=== PATIENT | male | born 1975 | race Caucasian/White ===

== ENCOUNTER 2019-08-14 14:34 | Outpatient (CLI) | payer OTHER ==
--- NOTE | 2019-08-14 15:43 | RAD ---
LUMBAR SPINE SERIES 4 VIEWS INCLUDING FLEXION AND EXTENSION: HISTORY: Back pain and left-sided sciatica. FINDINGS: Vertebral bodies are normal in height. Disk spaces all appear fairly well preserved. Fairly minimal osteolytic change. No abnormal motion on the flexion or extension views. Pedicles appear intact. IMPRESSION: Minimal arthritic changes of the spine. POS: REY
== END 2019-08-14 14:35 | disposition home or self-care (01) ==
LOC: RAD 14:34
PROVIDERS: ATTEND Anesthesiology Pain Medicine
DX: M54.42 Lumbago with sciatica, left side (principal); M46.96 Unspecified inflammatory spondylopathy, lumbar region
CPT/HCPCS: 72120